=== PATIENT | male | born 1975 | race Asian ===

== ENCOUNTER 2019-09-15 17:11 | Emergency (ER) | payer OTHER ==
[~2019-09-15] VITALS: Ht 193 cm; Wt 218.1 kg
[2019-09-15 17:47] VITALS: BP 160/77
[2019-09-15] MEDS ORDERED: ondansetron 4mg rapidly disintigrating tab PO ONE (18:05)
[2019-09-15] MEDS ORDERED: HYDROcodone/acetaminophen 10/325mg tab PO ONE (18:05)
[2019-09-15] MEDS ORDERED: IBUP-1984 PO (18:18)
[2019-09-15] MEDS ORDERED: ibuprofen tablet 400 MG TABLET PO ONE (18:20)
== END 2019-09-15 18:40 | disposition home or self-care (01) ==
LOC: ER 17:12
DX: M25.511 Pain in right shoulder (principal); I10 Essential (primary) hypertension; Z79.899 Other long term (current) drug therapy
CPT/HCPCS: 73030; 99283